=== PATIENT | female | born 1985 | race Two or more races ===

== ENCOUNTER 2019-03-18 22:40 | Emergency (ER) | payer SELFPAY ==
[~2019-03-18] VITALS: Ht 162.6 cm; Wt 91.2 kg
[2019-03-18 22:58] VITALS: BP 129/68
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
[2019-03-19] MEDS ORDERED: NAPROXEN 250 MG TABLET ONE (00:20)
[2019-03-19] MEDS ORDERED: NAPROXEN 500 MG TABLET PO SCH (00:30)
--- NOTE | 2019-03-19 01:52 | NUR ---
Patient discharged to home in stable condition. Written and verbal after care instructions given. Patient verbalizes understanding of instruction.
== END 2019-03-19 01:53 | disposition home or self-care (01) ==
LOC: ER 22:40
DX: S40.021A Contusion of right upper arm, initial encounter (principal); S10.83XA Contusion of other specified part of neck, initial encounter; S50.11XA Contusion of right forearm, initial encounter; R51 Headache; Y04.8XXA Assault by other bodily force, initial encounter; Y93.89 Activity, other specified; Y92.89 Other specified places as the place of occurrence of the external cause; Y99.8 Other external cause status
CPT/HCPCS: 70450-TC